=== PATIENT | male | born 1960 | race Caucasian/White ===

== ENCOUNTER 2021-06-08 19:01 | Emergency (ER) | payer OTHER, SELFPAY ==
[2021-06-08 19:40] VITALS: BP 212/114; PULSE 101; RESP 20; TEMP 36.8; O2SAT 97; BMI 28.5
--- NOTE | 2021-06-08 20:06 | HMH.EDUTC ---
[facility] [place] Disposition Clinical Impression: Spider bite wound Qualifiers: Encounter type: initial encounter Injury intent: undetermined intent Qualified Code(s): T63.304A - Toxic effect of unspecified spider venom, undetermined, initial encounter Disposition: Home, Self-Care Condition on Discharge: Good Instructions: DI for Spider Bites, DI for Cellulitis -- Adult Additional Instructions: follow up with pcp wednesday or antibiotics as ordered keep area clean and dry return or be seen in ed if worsens check bp at home and write down take to pcp Prescriptions: Sulfamethoxazole/Trimethoprim [Bactrim DS tablet] 1 each PO BID 10 Days #20 tab Transmission Status: Pending to [facility] Mupirocin [Bactroban 2% Ointment 22gm tube] 1 applicatio TP BID 14 Days #22 gm Transmission Status: Pending to [facility] cephALEXin [Cephalexin 500mg Tab] 500 mg PO BID 7 Days #14 tab Transmission Status: Pending to [facility] Referrals: Rosina Jacobo PA [Primary Care Provider] - Time of Disposition: 20:12 Medical Decision Making - Iban Inquiry Pt receiving controlled substance: No [facility] HPI - General Chief complaint: Urgent Treatment Center Stated complaint: lEFT HAnd POSSIBLE SPIDLE BITE Time Seen by Provider: 06/08/21 20:06 Mode of Arrival: Ambulatory Source of Information: Patient Limitations: No Limitations - History of Present Illness Provider Complaint: 60 yr old male presnets for left hand wound. pt states he was working outside and noticed a blood blister and popped it since then having increase in swelling and redness - Related Data Previous Rx's Medication Instructions Recorded Mupirocin [Bactroban 2% Ointment 1 applicatio TP BID 14 Days #22 gm 06/08/21 22gm tube] Sulfamethoxazole/Trimethoprim 1 each PO BID 10 Days #20 tab 06/08/21 [Bactrim DS tablet] cephALEXin [Cephalexin 500mg Tab] 500 mg PO BID 7 Days #14 tab 06/08/21 Allergies Allergy/AdvReac Type Severity Reaction Status Date / Time PENICILLIN Allergy Unknown UNKNOWN Uncoded 02/09/17 14:40 [facility] History - Hepatitis A Screen Attestation statement:: This patient has been screened for Hepatitis A risk factors. I have reviewed the patient's past medical history: Yes ROS Obtained: Yes Systems reviewed as appropriate & no additional complaints - Constitutional Constitutional: Reports system reviewed and no additional complaints, except as docu, Denies fever(s) - Eyes Eyes: Reports system reviewed and no additional complaints, except as docu, Denies dry eyes - ENT Ears, Nose, Mouth, and Throat: Reports system reviewed and no additional complaints, except as docu, Denies sore throat - Cardiovascular Cardiovascular: Reports system reviewed and no additional complaints, except as docu, Denies chest pain - Respiratory Respiratory: Reports system reviewed and no additional complaints, except as docu, Denies chest congestion - Gastrointestinal Gastrointestingal: Reports: system reviewed and no additional complaints, except as docu. Denies: abdominal pain - Musculoskeletal Musculoskeletal: Reports system reviewed and no additional complaints, except as docu, Denies back pain - Integumentary/Breasts Skin/Breast: Reports system reviewed and no additional complaints, except as docu, Reports wounds - Neurologic Neurologic: Reports system reviewed and no additional complaints, except as docu, Denies dizziness - Endocrine Endocrine: Reports system reviewed and no additional complaints, except as docu, Denies fatigue - Hematologic/Lymphatic Henatologic/Lymphatic: Reports system reviewed and no additional complaints, except as docu, Denies lymphadenopathy - Allergic/Immunologic Allergic/Immunologic: Reports system reviewed and no additional complaints, except as docu, Denies itchy eyes Physical Exam - General General appearance: alert, in no apparent distress - Head Head exam: atraumatic, no
[2021-06-08 20:10] VITALS: BP 212/114; PULSE 101; RESP 20; TEMP 36.8; O2SAT 97
== END 2021-06-08 20:18 | disposition home or self-care (01) ==
PROVIDERS: Emergency Provider Nurse Practitioner Family; PCP Physician Assistant
DX: T63.304A Toxic effect of unspecified spider venom, undetermined, initial encounter (principal); L03.114 Cellulitis of left upper limb; Z88.0 Allergy status to penicillin
CPT/HCPCS: 99213; G0463

== ENCOUNTER → 2021-06-12 09:15 | Outpatient (CLI) | payer OTHER, SELFPAY ==
--- NOTE | 2021-06-12 09:19 | XR_ITS ---
FINAL REPORT CLINICAL HISTORY: left hand spider bite/cellulitis, between 2nd and 3rd digit FINDINGS: LEFT HAND: 3 views of the left hand were obtained. There is no acute fracture or dislocation. Visualized joint spaces are normally aligned. Soft tissues are unremarkable. IMPRESSION: No acute bony abnormality. Reviewed, Interpreted and Dictated by Fabian Mosquera III, MD Transcribed by Annette Macias Authenticated by Fabian Mosquera III, MD on 06/12/2021 10:54:48 AM [facility]
== END ==
PROVIDERS: PCP Physician Assistant; Visit Provider Physician Assistant
DX: L03.114 Cellulitis of left upper limb (principal)
CPT/HCPCS: 73130

== ENCOUNTER → 2021-06-20 07:13 | Outpatient (CLI) | payer OTHER, SELFPAY ==
--- NOTE | 2021-06-20 07:13 | MR_ITS ---
FINAL REPORT CLINICAL HISTORY: possible spider bite 2nd digit. open sore on 2nd digit at metacarpophalangeal joint. symptoms x2wks ago. burning sensation in hand. FINDINGS: Multiplanar MR imaging was obtained of the left hand. On coronal images there is no evidence of marrow edema within the metacarpals or visualized phalanges. Axial images demonstrate the flexor and extensor tendons to be intact. There is subcutaneous soft tissue edema dorsal to the 2nd MCP joint that is ill-defined. There is no discrete fluid collection. There is fluid dorsal to the 2nd PIP joint. No discrete loculated collection is identified. IMPRESSION: Edema dorsal to the 2nd MCP joint. No discrete fluid collection or marrow edema. Reviewed, Interpreted and Dictated by Roberto Carlos Ballard MD Transcribed by Juan M Bullock Authenticated by Roberto Carlos Ballard MD on 06/20/2021 09:18:40 AM [facility]
== END ==
PROVIDERS: PCP Physician Assistant; Visit Provider Orthopaedic Surgery
DX: L03.114 Cellulitis of left upper limb (principal); S61.402A Unspecified open wound of left hand, initial encounter; I96 Gangrene, not elsewhere classified
CPT/HCPCS: 73218

== ENCOUNTER 2021-08-29 15:29 | Emergency (ER) | payer OTHER, SELFPAY ==
[2021-08-29 15:30] VITALS: BP 164/94; PULSE 76; RESP 19; TEMP 37.1; O2SAT 97; BMI 27.0
--- NOTE | 2021-08-29 15:46 | HMH.EDUTC ---
[facility] Clinical Impression: Exposure to COVID-19 virus Disposition: Home, Self-Care Condition on Discharge: Good Instructions: DI for COVID-19 (Suspected or Confirmed ), Preventing the Spread of Coronavirus Discharge Instructions Additional Instructions: *Monitor Temp, Over the counter Motrin or Tylenol as directed/as needed Tylenol every 4 hours and Motrin every 6 hours (as long as your family doctor has told you that you can take it) for fever or pain. and straight to ER if unable to lower temp less than 101.0 after medication given *Warm salt water gargles may help to soothe the throat *Throat Lozenges *Warm fluids like tea with honey may help to soothe the throat *Sleep elevated *Humidifier/Vaporizer Follow up IMMEDIATELY for new or worsening symptoms or no Noticeable improvement over the next 48-72 hours. 911 for difficulty breathing or swallowing You were tested for today for COVID19 your test result should be back in the next 24-48 hours, you may check your results on the [facility] My Health Portal Make sure to take your Vitamins Vit. C Vit D and Zinc if you can take them Referrals: Elly Win APRN [Primary Care Provider] - As needed Forms: Work/School Release Medical Decision Making - Iban Inquiry Pt receiving controlled substance: No Iban was queried for this patient: No Vital Signs: 08/29/21 15:30 Temperature 98.7 F Temperature Source Oral Pulse Rate [Right Brachial] 76 Respiratory Rate 19 Blood Pressure [Right Arm] 164/94 H Blood Pressure Mean [Right Arm] 117 Blood Pressure Source [Right Arm] Automatic Cuff Blood Pressure Position [Right Arm] Sitting 02 Sat by Pulse Oximetry 97 Oxygen Delivery Method Room Air Orders (Tests/Meds): ORDERS Category Date Time Status Covid-19 Nasal PCR ([facility]) Routine Lab 08/29/21 15:34 Ordered [facility] HPI - General Stated complaint: covid test exposed Time Seen by Provider: 08/29/21 15:48 Mode of Arrival: Ambulatory Source of Information: Patient Limitations: No Limitations Description of Symptoms (Recalled from Triage Doc. by RN): COVID TEST D/T EXPOSURE, DENIES SYMPTOMS HEENT Symptoms (Recalled from RN notes): No Resp Symptoms (Recalled from RN notes): No Skin Symptoms (Recalled from RN notes): No MS Symptoms (Recalled from RN notes): No Functional Status (Recalled from RN notes): WNL - History of Present Illness Provider Complaint: Patient state that son and other family member recently tested positive for COVID states he isnt having any symptoms but wanted to get tested due to exposure - Related Data Previous Rx's Medication Instructions Recorded Mupirocin [Bactroban 2% Ointment 1 applicatio TP BID 14 Days #22 gm 06/08/21 22gm tube] Sulfamethoxazole/Trimethoprim 1 each PO BID 10 Days #20 tab 06/08/21 [Bactrim DS tablet] cephALEXin [Cephalexin 500mg Tab] 500 mg PO BID 7 Days #14 tab 06/08/21 clindamycin HCl 300 mg capsule 300 mg PO Q8H #30 cap 06/24/21 silver sulfadiazine 1 % topical 1 applic TOPICAL DAILY #20 g 06/24/21 cream Allergies Allergy/AdvReac Type Severity Reaction Status Date / Time Penicillins Allergy Verified 06/13/21 09:12 - Worker's Comp Is this a Worker's Comp case?: No [facility] History - Hepatitis A Screen Attestation statement:: This patient has been screened for Hepatitis A risk factors. I have reviewed the patient's past medical history: Yes - Social History Smoking Status: Current every day smoker # Packs/Day (cigarettes): 2 Alcohol Intake: never Occupational Status: unemployed ROS Obtained: Yes All systems reviewed & no additional complaints, Yes Systems reviewed as appropriate & no additional complaints - Constitutional Constitutional: Reports system reviewed and no additional complaints, except as docu, Denies body ache, Denies chills, Denies fever(s) - ENT Ears, Nose, Mouth, and Throat: Reports system reviewed and no additional complaints, except as docu - Cardio
[2021-08-29 15:50] VITALS: BP 164/94; PULSE 76; RESP 19; TEMP 37.1; O2SAT 97
== END 2021-08-29 15:55 | disposition home or self-care (01) ==
PROVIDERS: Emergency Provider Nurse Practitioner; PCP Nurse Practitioner Family
DX: Z03.89 Encounter for observation for other suspected diseases and conditions ruled out (principal); Z20.822 Contact with and (suspected) exposure to COVID-19; F17.210 Nicotine dependence, cigarettes, uncomplicated; Z88.0 Allergy status to penicillin
CPT/HCPCS: 99213; C9803; G0463; U0003; U0005